=== PATIENT | male | born 1985 | race Two or more races ===

== ENCOUNTER 2024-12-08 19:48 | Emergency (ER) | payer MEDICAID, SELFPAY ==
[2024-12-08 19:49] VITALS: BMI 34.5
[2024-12-08 20:31] VITALS: BP 136/80; PULSE 65; RESP 18; TEMP 37; O2SAT 95
--- NOTE | 2024-12-08 20:54 | EDNOTE_ITS ---
ED Skin Abcess FB-RME/HPI General Chief complaint: Skin/Abscess/Foreign Body Stated complaint: RASH ON FACE AND UPPER BODY X 2DAYS Time Seen by Provider: 12/08/24 20:29 Arrival date/time: 12/08/24 19:48 This is a 39-year-old male that comes in with complaints of reaction. Patient has a rash to face and upper extremities. Patient states he has kind of pinpointed it after he eats crab meat or avocado. Patient is not complaining of trouble breathing. Patient has no other complaints. Related Data Previous Rx's ?Medication ?Instructions ?Recorded epinephrine 0.3 mg/0.3 mL 0.3 ml IM Q5-15M PRN anaphylaxis 01/03/24 injection, auto-injector #2 ea famotidine 20 mg tablet (Pepcid) 20 mg PO QDAY PRN allergic 01/03/24 reaction #30 tabs diphenhydramine HCl 50 mg tablet 50 mg PO Q6H PRN allergic reaction 12/08/24 #20 tabs Allergies Allergy/AdvReac Type Severity Reaction Status Date / Time No Known Allergies Allergy Verified 01/03/24 15:46 Review of Systems Review of Systems Systems Reviewed: All systems reviewed, normal except as documented Past Medical History Social History SMOKING STATUS: Never smoker ED Exam General General appearance: Present alert and in no apparent distress Head Head exam: Present atraumatic Eye Eye exam: Present normal appearance, PERRL and EOMI ENT ENT exam: Present normal exam, normal oropharynx and mucous membranes moist Neck Neck exam: Present normal inspection, full ROM and trachea midline Chest Chest inspection: Present normal inspection and symmetric chest wall rise Respiratory Respiratory exam: Present normal lung sounds bilaterally Cardiovascular Cardiovascular exam: Present regular rate, normal rhythm and normal heart sounds Abdominal Exam Abdominal exam: Present soft Extremities Exam Extremities exam: Present normal inspection and full ROM Back Exam Back exam: Present normal inspection and full ROM Neurological Exam Neurological exam: Present alert, oriented X3 and CN II-XII intact Psychiatric Psychiatric exam: Present normal affect and normal mood Skin Skin exam: Present warm, dry and other (Rash to face upper extremity and chest. Rash appears blotchy slightly raised) Course Quality Measures none Orders Category Date Time Status DiphenhydrAMINE [Benadryl] Med 12/08/24 20:53 Discontinued 50 mg PO X1 ONE Famotidine [Pepcid] Med 12/08/24 20:53 Discontinued 20 mg PO X1 ONE Vital Signs Vital signs: Vital Signs Temperature 98.6 F 12/08/24 20:31 Pulse Rate 65 12/08/24 20:31 Respiratory Rate 18 12/08/24 20:31 Blood Pressure 136/80 H 12/08/24 20:31 Pulse Oximetry (%) 95 12/08/24 20:31 Oxygen Delivery Method Room Air 12/08/24 20:31 Skin / Abscess / Foreign Body MDM Narrative MDM Narrative:: Patient given Benadryl and Pepcid and symptoms improved. Patient told to avoid seafood such as shellfish and crab. Patient told to follow-up with primary provider in 1 to 2 days. Come back to the emergency room if symptoms change or worsen. Patient data External records reviewed:: [facility] previous records Clinical information provided by:: patient Social determinants that could affect healthcare access:: none Patient has the following chronic illnesses:: None How is presenting disease/condition affected by chronic disease/condition?: no chronic disease Evaluation data The following diagnostics were reviewed and interpreted by me:: other (specify) Lab and/or radiology exams considered but not ordered:: None Interpretation Summary: None Medications / Prescriptions Medications or Prescriptions considered but not ordered:: None Medication administrations:: Medication Administration History Discontinued Medications Diphenhydramine HCl (Diphenhydramine 25 Mg Capsule) 50 mg PO X1 ONE Stop: 12/08/24 20:54 Last Admin: 12/08/24 20:58 Dose: 50 mg Documented By: TIFF Famotidine (Famotidine 20 Mg Tablet) 20 mg PO X1 ONE Stop: 12/08/24 20:54 Last Admin: 12/08/24 20:59 Dose: 20 mg Documented By: TIFF See [facility] Consultations Consultation(s) initiated? (list below): No Diagnosis Skin/Abscess Differential Diagnosis: viral exanthem, urticaria, allergic reaction to drug and cellulitis Most likely diagnosis given after review of the tests above:: Allergic reaction Admission Indicated Admission indicated?: not indicated Admission Request Was there a request for admission?: No Disposition Plan Disposition Plan: Discharge Discharge Attestation Discharge Attestation: The patient and all family members were given an opportunity to ask questions and understood the discharge instructions. Discharge instructions specifically effects, indications for sooner follow up or return to the emergency department, and the expected course of current diagnosis. Patient condition: Stable Discharge Plan Plan Patient Disposition: HOME (Self Care) Patient condition on transfer: Stable Prescriptions/Referrals Prescriptions/Med Rec: New diphenhydramine HCl 50 mg tablet 50 mg PO Q6H PRN (Reason: allergic reaction) Qty: 20 0RF No Action epinephrine 0.3 mg/0.3 mL auto-injector 0.3 ml IM Q5-15M PRN (Reason: anaphylaxis) Qty: 2 2RF Rx Instructions: do not exceed 3 doses per episode famotidine [Pepcid] 20 mg tablet 20 mg PO QDAY PRN (Reason: allergic reaction) Qty: 30 0RF Rx Instructions: Directions in [place] Referrals: Temporary Provider,ED [Physician] - In 1 week Problem List Clinical Impression: Allergic reaction Patient/Caregiver Discharge Instructions Discharge Activity: activity as tolerated Education Materials: ED Medicine Reaction: Allergic Additional Instructions: Please follow-up with primary provider in 1 to 2 days. Patient may need to be sent to an business office specialist to pinpoint the allergy patient has. For now avoid things with avocado and fish such as crab. Come back to the emergency room if symptoms change or worsen. Print Language: Belgian Stand Alone Forms: [employer] Award Info., Patient Portal Info Letter PA/DRAFTER APPRENTICE Supervising Physician WESLEY/FAIZAN Supervising Physician: tessie
[2024-12-08] MEDS: DiphenhydrAMINE 25 MG CAPSULE 50 MG PO (20:58)
[2024-12-08] MEDS: FAMOTIDINE 20 MG TABLET PO (20:59)
== END 2024-12-08 21:02 | disposition home or self-care (01) ==
PROVIDERS: Emergency Provider Emergency Medicine; PCP Nurse Practitioner Family
DX: T78.40XA Allergy, unspecified, initial encounter (principal); R21 Rash and other nonspecific skin eruption
CPT/HCPCS: 99282; A9270

== ENCOUNTER → 2024-12-26 | Outpatient (BNVA) | payer MEDICAID, SELFPAY | END | disposition home or self-care (01) | PROVIDERS: PCP Nurse Practitioner Family; Referring Provider Nurse Practitioner Family; Visit Provider Nurse Practitioner Family | DX: J20.9 Acute bronchitis, unspecified (principal) | CPT/HCPCS: 87804; 87807; 87811; 94640; A9270 ==

== ENCOUNTER → 2024-12-26 | Outpatient (CLI) | payer MEDICAID, SELFPAY | END | disposition home or self-care (01) | LOC: CDIM 11:00 | PROVIDERS: PCP Nurse Practitioner Family; Referring Provider Nurse Practitioner Family; Visit Provider Nurse Practitioner Family | DX: Z53.29 Procedure and treatment not carried out because of patient's decision for other reasons (principal) ==